=== PATIENT | male | born 1995 | race African-American/Black ===

== ENCOUNTER 2022-05-10 16:15 | Emergency (ER) | payer OTHER, SELFPAY ==
--- NOTE | 2022-05-10 16:36 | ED.EAR ---
HPI - Ear Problem General Chief complaint: Ear Stated complaint: ear infection Time Seen by Provider: 05/10/22 16:36 Source: patient and RN notes reviewed History of Present Illness HPI Narrative: Patient is a 26-year-old male who presents to urgent care with complaints of severe right ear pain that started today. Patient states that he took Advil which did seem to work for his pain. States that it was all the way down to his face earlier this morning at work. Denies any fever, drainage, cough or other URI symptoms. No other acute complaints. No acute distress noted. Patient aware of the plan of care. Some parts of this dictation were generated by voice recognition software and may contain typographical and/or grammatical inaccuracies. Related Data Allergies Allergy/AdvReac Type Severity Reaction Status Date / Time No Known Allergies Allergy Verified 05/10/22 16:31 Review of Systems Review of Systems: CONSTITUTIONAL: Denies fever, chills, or sweats. EYES: Denies visual changes, redness, or discharge. ENT: Denies rhinorrhea, congestion, sore throat. Reports right otalgia CARDIOVASCULAR: Denies chest pain, palpitations, or edema. RESPIRATORY: Denies cough or dyspnea. GASTROINTESTINAL: Denies abdominal pain, nausea, vomiting, or diarrhea. GENITOURINARY: Denies dysuria or hematuria. SKIN: Denies rash or itching. MUSCULOSKELETAL: Denies back pain, joint pain, or myalgia. NEUROLOGIC: Denies headache, numbness, or weakness. PSYCHIATRIC: Denies anxiety or depression. All other systems reviewed are negative, except as documented in HPI. PMFSH Comments At the time of my signature, I reviewed and agree with the nursing past medical, surgical, social, and family history. There is no relevant family history pertinent to the patient complaint. Exam Narrative: GENERAL: This is a well-nourished, well-developed patient, in no apparent distress. HEAD: normocephalic, atraumatic. EYES: PERRL. Sclera clear/white. Vision is grossly intact. EARS: External ears normal, auditory canals clear and without drainage, TMs normal without perforation. Mild cerumen noted to the right ear canal without impaction. Hearing grossly intact. NOSE: External nose normal with no obvious nasal discharge, nares without redness, no rhinorrhea. THROAT: Mucous membranes moist, posterior pharynx clear. NECK: Neck supple, non-tender without lymphadenopathy RESPIRATORY: Clear to auscultation. Breath sounds equal bilaterally. No wheezes, rales, or rhonchi. SKIN: warm, intact with no suspicious lesions or rash, good texture and turgor. NEURO: awake, alert, and oriented to person, place and time. There were no obvious focal neurologic abnormalities. EXTREMITIES: No clubbing, cyanosis, or edema. Course Course Level of Care: Express Care Visit Vital Signs Vital signs: Vital Signs Temperature 97.8 F 05/10/22 16:52 Pulse Rate 101 H 05/10/22 16:52 Respiratory Rate 20 05/10/22 16:52 Blood Pressure 138/86 05/10/22 16:52 Pulse Oximetry 99 05/10/22 16:52 Oxygen Delivery Room Air 05/10/22 16:52 Temperature 97.8 F 05/10/22 16:52 Pulse Rate 101 H 05/10/22 16:52 Respiratory Rate 20 05/10/22 16:52 Blood Pressure 138/86 05/10/22 16:52 Pulse Oximetry 99 05/10/22 16:52 Oxygen Delivery Room Air 05/10/22 16:52 Reviewed Medical Decision Making MDM Narrative Medical decision making narrative: Advised patient to use the Debrox to the right ear as directed. Apply 5 drops and use a warm compress. May use Tylenol/ibuprofen as needed. Do not use Q-tips, he will impact the cerumen. Do not put any [id number] drops, peroxide or water in the ear. Follow-up with your PCP within 2-5 days or for worsening symptoms or failure to improve. Differential Diagnosis Differential Diagnosis: Pneumonia, Allergic Rhinitis, Upper respiratory cough syndrome, Pharyngitis, Sinusitis, Bronchitis, otitis media, viral URI, Asthma/reactive airway disease, CO
[2022-05-10 16:52] VITALS: BP 138/86; PULSE 101; RESP 20; TEMP 36.6; O2SAT 99
== END 2022-05-10 17:14 | disposition home or self-care (01) ==
PROVIDERS: Emergency Provider Nurse Practitioner Family; PCP Emergency Medicine
DX: H61.21 Impacted cerumen, right ear (principal)
CPT/HCPCS: 99213; G0463